=== PATIENT | female | born 1980 ===

== ENCOUNTER → 2020-10-01 | Outpatient (CLI) | payer OTHER | END | disposition home or self-care (01) | LOC: LAB 12:36 | PROVIDERS: ATTEND Radiology Diagnostic Radiology | DX: C18.7 Malignant neoplasm of sigmoid colon (principal) ==

== ENCOUNTER → 2020-10-08 | Outpatient (CLI) | payer OTHER | END | disposition home or self-care (01) | LOC: TOM 07:10 | PROVIDERS: ATTEND Internal Medicine Hematology & Oncology | DX: R63.4 Abnormal weight loss (principal); C18.7 Malignant neoplasm of sigmoid colon; C34.11 Malignant neoplasm of upper lobe, right bronchus or lung ==